=== PATIENT | female | born 1970 | race Caucasian/White ===

== ENCOUNTER 2016-10-23 07:21 | Day surgery (SDC) | payer OTHER ==
[~2016-10-23] VITALS: Ht 160 cm; Wt 68.0 kg
[~2016-10-23 07:21] MED LIST: 0.9% Sodium Chloride 1,000 ML IV SCH; fentaNYL-PF 50 mCg/mL 2 mL Inj IVPUSH PRN
[2016-10-23] MEDS ORDERED: LEVO75TA36 PO (07:38)
[2016-10-23 07:44] VITALS: BP 127/85; PULSE 79; RESP 16; O2SAT 100
[2016-10-23] MEDS: Sodium Chloride LOK Flush 10 mL Syringe IV PRN ×2 (07:46→08:17)
[2016-10-23 08:25] VITALS: BP 104/62; PULSE 77; RESP 16; O2SAT 99
[2016-10-23 08:35] VITALS: BP 103/63; PULSE 87; RESP 16; O2SAT 98
[2016-10-23 08:40] VITALS: BP 120/84; PULSE 87; RESP 16; O2SAT 99
--- NOTE | 2016-10-23 13:39 | ENDO ---
[address] [address] ENDOSCOPY PROCEDURE PATIENT: JASON DEY : 1970 MR#: [id number] ADMIT: 10/23/2016 JOB ID: [id number] PROCEDURE: Colonoscopy. INDICATION: Family history of colon cancer. The patient's ASA classification is I. Mallampati score is II. MEDICATIONS: Versed 6 mg, fentanyl 125 mcg. INSTRUMENT USED: PCF-H180 AL. Prep quality was good. PROCEDURE DETAILS: After informed consent was obtained, the patient was brought into the GI suite, where she was placed on oxygen via nasal cannula and monitored with continuous pulse oximeter, telemetry, and blood pressure monitoring. A time-out was performed. Then, she was placed in a left lateral decubitus position and medications were administered for sedation. Digital rectal exam was performed, which was unremarkable. The colonoscope was then inserted into the rectum and advanced under direct visualization to the cecum, which was identified by the presence of the ileocecal valve and appendiceal orifice. Once the cecum was reached, the colonoscope was withdrawn back into the rectum and mucosa and lumen were examined. In the rectum, retroflexion was performed. Following retroflexion, remaining air in the rectum was suctioned, and procedure was completed. FINDINGS: In the transverse colon, there was an approximately 5-6 mm sessile polyp that was partially removed with a cold snare and the remainder was removed with cold biopsy forceps. IMPRESSION: Transverse colon polyp. RECOMMENDATIONS: Repeat colonoscopy in five years. COMPLICATIONS: None. ESTIMATED BLOOD LOSS: Less than 5 mL.
--- NOTE | 2016-10-24 11:08 | PATH ---
SURGICAL PATHOLOGY Attending Physician:Orquidea Ledbetter CASE STATUS: Signed Out PATIENT NAME: JASON DEY PID: [id number] : 1970 DATE COLLECTED:10/23/2016 17:35 SPECIMEN: Colon, Biopsy CLINICAL HISTORY: 1). TRANSVERSE COLON POLYP FINAL DIAGNOSIS: 1.TRANSVERSE COLON POLYP: SERRATED POLYP, FAVOR HYPERPLASTIC, INVOLVING TWO BIOPSY FRAGMENTS. ICD10 CODE K63.5 GROSS DESCRIPTION: The specimen is received in one formalin filled container labeled with the patient's name, sublabeled "transverse colon polyp" and consists of 3 fragments of tissue which aggregate to 0.3 x 0.3 x 0.2 CM. The specimen is entirely submitted in one cassette. 10/23/2016 [facility] MICRO DESCRIPTION: See diagnosis. ICD-9 CODES: CPT CODES: 1: 46336 Electronically Signed Out Harry Bullock MD [facility] Pathology [facility] [address], [place] [address] Technical component performed at [facility], [facility] [address], [place], [address]
== END 2016-10-23 23:59 | disposition home or self-care (01) ==
LOC: END 07:21
PROVIDERS: ATTEND Internal Medicine Gastroenterology
DX: Z12.11 Encounter for screening for malignant neoplasm of colon (principal); K63.5 Polyp of colon; Z80.0 Family history of malignant neoplasm of digestive organs; Z79.899 Other long term (current) drug therapy
CPT/HCPCS: 45380; 45385; G0500; J2250; J3010; J7030